=== PATIENT | male | born 1940 | race Caucasian/White ===

== ENCOUNTER 2021-04-26 12:24 | Emergency (ER) | payer MEDICARE, SELFPAY ==
--- NOTE | 2021-04-26 12:36 | DI.RAD.S_ITS ---
PROCEDURE: XR HIP W PEL IF DONE RT 2V INDICATIONS: pain in ball of hip TECHNIQUE: AP pelvis with AP and lateral view(s) of the right hip(s). COMPARISON: [facility] [place], LIBBY, BILATERAL FEMUR, 01/02/2016, 11:19. FINDINGS: Bones: No fractures or dislocations. Pelvic ring appears intact. No suspicious bony lesions. Unremarkable right hip arthroplasty hardware is seen. No definite findings hardware failure or hardware loosening can be seen. No significant changes compared to 2016. Lower lumbar spine postoperative hardware is partially seen. A bone harvesting site can be seen along the left iliac wing. Soft tissues: The visualized bowel gas pattern is normal. No suspicious soft tissue calcifications. Groin clips are seen, including vasectomy clips. IMPRESSION: Unremarkable right hip arthroplasty hardware. Dictated by: Alec Amezcua M.D. on 04/26/2021 at 12:22 Approved by: Alec Amezcua M.D. on 04/26/2021 at 12:24
[2021-04-26 12:37] VITALS: BP 162/76; PULSE 56; RESP 18; TEMP 36.8; O2SAT 95
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
[2021-04-26] MEDS: OXYCODONE IR 5 MG TABLET PO (13:56)
--- NOTE | 2021-04-26 14:13 | PC.NURSE ---
on arrival pt using the bed and chair to move about or take a couple of steps.
[2021-04-26 14:36] VITALS: BP 158/70; PULSE 74; RESP 16; O2SAT 97
== END 2021-04-26 13:42 | disposition home or self-care (01) ==
PROVIDERS: Emergency Provider Physician Assistant; Family Provider Family Medicine; PCP Family Medicine
DX: M25.551 Pain in right hip (principal)
CPT/HCPCS: 73502; 99283

== ENCOUNTER 2023-05-24 07:59 | Emergency (ER) | payer MEDICARE, SELFPAY ==
[2023-05-24] VITALS (48 sets, daily range): BP systolic 98–149; BP diastolic 51–67; PULSE 50–82; RESP 15–33; TEMP 36.9; O2SAT 93–97; BMI 31.6
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
--- NOTE | 2023-05-24 08:07 | DI.RAD.S_ITS ---
PROCEDURE: XR CHEST 1V INDICATIONS: CP TECHNIQUE: One view of the chest was acquired. COMPARISON: None. FINDINGS: Surgical changes and devices: Sternotomy wires are present. Lungs and pleura: Mildly low lung volumes. No focal consolidation is seen. No pleural effusions or pneumothorax. Mediastinum: Mediastinal contours appear normal. Heart size is normal. Bones and chest wall: No suspicious bony lesions. Overlying soft tissues appear unremarkable. IMPRESSION: No acute cardiopulmonary abnormality is seen. Approved by: Donis Grover M.D. on 05/24/2023 at 8:39
[2023-05-24 08:31] LABS: Add Manual Diff / Slide Review NO; Basophils Absolute Auto 100 /uL (0-100); Basophils Percent Auto 0.6 % (0-2); Eosinophils Absolute Auto 100 /uL (0-450); Hematocrit 39.1 % (41-53); Hemoglobin 13.1 g/dL (13.5-17.5); Lymphocytes Absolute Auto 1200 /uL (1100-4500); Lymphocytes Percent Auto 13.9 % (25-40); Mean Corpuscular HGB Conc 33.6 % (30-36); Mean Corpuscular Hemoglobin 30.7 PG (26-34); Mean Corpuscular Volume 91.5 fL (80-100); Monocytes Absolute Auto 400 /uL (0-900); Monocytes Percent Auto 4.1 % (3-14); Neutrophils Absolute Auto 7200 /uL (1500-7000); Neutrophils Percent Auto 80.4 % (50-75); Platelet Count 175 X10^3/uL (150-400); Red Blood Cell Count 4.27 X10^6/uL (4.5-5.9); Red Cell Distribution Width 15.1 % (11.6-14.8); White Blood Cell Count 8.9 X10^3/uL (4.5-11.0)
[2023-05-24 08:46] LABS: Alanine Aminotransferase 23 IU/L (<50); Albumin 3.8 g/dL (3.5-5.0); Albumin Globulin Ratio 1.1 (1.0-2.8); Alkaline Phosphatase 65 U/L (38-126); Aspartate Aminotransferase 30 IU/L (17-59); BUN Creatinine Ratio 15.1 (6-22); Bilirubin Total 0.6 mg/dL (0.2-1.3); Blood Urea Nitrogen 22 mg/dL (9-20); Calcium 9.3 mg/dL (8.4-10.2); Carbon Dioxide 24 mmol/L (22-32); Chloride 109 mmol/L (98-107); Estimated Glomerular Filt Rate 47 mL/min (>60); Globulin 3.5 g/dL (1.7-4.1); Glucose 110 mg/dL (80-110); HEMOLYSIS < 15 (0-50); Potassium 4.5 mmol/L (3.4-5.1); Sodium 137 mmol/L (137-145); Total Protein 7.3 g/dL (6.3-8.2)
[2023-05-24 08:57] LABS: Troponin I < 0.012 ng/mL (0.01-0.034)
[2023-05-24] MEDS: NITROGLYCERIN OINT 1 INCH/GM OINT...G. TOP (08:57)
[2023-05-24 09:07] LABS: Influenza A - CEPHEID Flu A NEGATIVE (NEGATIVE); Influenza B - CEPHEID Flu B NEGATIVE (NEGATIVE); Respiratory Syncytial Virus Negative (Negative)
[2023-05-24 09:10] LABS: COVID-19 CEPHEID 4-PLEX PCR Negative (Negative)
--- NOTE | 2023-05-24 09:11 | PC.NURSE ---
At 0900 when RN was placing nitro paste on pt, pt stated his chest pain was increasing. Pt's HR dropped of the 30s and pt began to vomit. Dr. Pat called to bedside. Defib pads placed on pt. Pt states after vomitting, chest pain subsided. HR back up to 50s-60s all over vitals WNL. Continuing to monitor pt for any changes.
[2023-05-24] MEDS: SODIUM CHLORIDE 0.9% 1,000 ML 1000 ML IV (09:31)
[2023-05-24] MEDS: ONDANSETRON 4 MG/2 ML INJ IV (09:31)
--- NOTE | 2023-05-24 10:20 | PC.NURSE ---
Addendum entered by Kirsten Murry CNA 05/24/23 10:42: spoke to Teri at [facility] and they are currently boarding spoke to paul at [facility] and they don't have beds spoke to alicia at [facility] and they are currently boarding Original Note: Dr. Clayton accepts pt at [facility] called dry house attendant Tayla and she said there is pt's ahead of him and they probably will not have a bed until later on today possibly tomorrow. Called [facility] spoke to nick who stated they currently don't have a bed but they are working on discharges. spoke to Tahmina at [facility] who told me there's no bed but to put in the order I instructed her I've never put in an order for a transfer before and she told me to do it online I told her that's not how I normally do it I usually call and the nurse takes information she then transfered me to Jaz who took pt information and told me it might be 24 to 48 hours after giving Jaz diagnosis Jaz stated this might need to be seen sooner than 24 hours stated to keep calling other places. Spoke to Paulina at [facility] she will start working on the case and have licensed acupuncturist give us a call back
[2023-05-24 11:21] LABS: Troponin I < 0.012 ng/mL (0.01-0.034)
[2023-05-24 12:51] LABS: Magnesium 1.9 mg/dL (1.6-2.3)
[2023-05-24 13:23] LABS: Thyroid Stimulating Hormone 3.47 uIU/mL (0.47-4.68)
[2023-05-24] MEDS: CALCIUM CARBONATE 500 MG TAB PO (15:36)
== END 2023-05-24 16:00 | disposition short-term general hospital (02) ==
PROVIDERS: Emergency Provider Emergency Medicine; Family Provider Family Medicine; PCP Family Medicine
DX: R07.9 Chest pain, unspecified (principal); Z20.822 Contact with and (suspected) exposure to COVID-19
CPT/HCPCS: 0241U; 36415; 71045; 80053; 83735; 84443; 84484; 85025; 93005; 93010; 96361; 96374; 99284; J2405

== ENCOUNTER 2023-11-09 13:58 | Emergency (ER) | payer MEDICARE, SELFPAY ==
[2023-11-09 14:02] VITALS: BP 134/68; PULSE 58; RESP 19; TEMP 36.8; O2SAT 95; BMI 30.7
--- NOTE | 2023-11-09 14:11 | DI.RAD.S_ITS ---
PROCEDURE: XR SHOULDER LT MIN 2V INDICATIONS: fall tuesday morning and pain TECHNIQUE: 3 views of the shoulder were acquired. COMPARISON: None. FINDINGS: Bones: No fractures or dislocations. No suspicious bony lesions. Visualized ribs appear intact. Acromioclavicular joint space narrowing with osteophytosis. Soft tissues: No suspicious soft tissue calcifications. IMPRESSION: No acute bony abnormality. Dictated by: John Hermosillo M.D. on 11/09/2023 at 14:46 Approved by: John Hermosillo M.D. on 11/09/2023 at 14:47
--- NOTE | 2023-11-09 14:12 | DI.RAD.S_ITS ---
PROCEDURE: XR HUMERUS LT 2V INDICATIONS: fall tuesday morning/pain TECHNIQUE: 2 views of the humerus were acquired. COMPARISON: None. FINDINGS: Bones: No fractures or dislocations. No suspicious bony lesions. Soft tissues: No suspicious soft tissue calcifications. IMPRESSION: No acute bony abnormality. Dictated by: John Hermosillo M.D. on 11/09/2023 at 14:46 Approved by: John Hermosillo M.D. on 11/09/2023 at 14:46
[2023-11-09 14:31] VITALS: PULSE 62
--- NOTE | 2023-11-09 14:36 | ED_ITS ---
HPI - Extremity Injury (Upper) General Chief Complaint: Extremity Injury, Upper Stated Complaint: fall t-2, L arm pain poss fracture Time Seen by Provider: 11/09/23 14:24 Source: patient Mode of arrival: Wheelchair History of Present Illness HPI narrative: Patient here with his . Patient is right-handed. Patient and states 2 nights ago he got up to go the bathroom around midnight. Was not using his cane as he is supposed to. He did not turn on the lights. It was dark. He went also to put cream on his back, on his way back, the doorway to the bedroom he tripped and fell onto his left shoulder. Denies denies any other injuries. Did not hit his head. No loss of consciousness. heard him fall and got up to be next to him. Patient is not on any blood thinners. Patient complains of proximal 3rd of the humerus pain. No wrist or elbow pain or injury. Has limited range of motion and limited raising his hand above his shoulder due to pain. Patient had allergies to tramadol but has been on tramadol for the past 3 weeks without any rash. Patient states he would only get a rash with oxycodone but that was many many years ago. They would like to try something stronger and would like to try hydrocodone. They do understand this may also cause a rash. Related Data Home Medications Medication Instructions Recorded Confirmed aspirin 81 mg tablet,delayed 81 mg PO HS ##0 04/14/16 release metoprolol tartrate 50 mg tablet 50 mg PO BID ##0 04/14/16 naproxen sodium 220 mg capsule 220 mg PO QDAY ##0 04/14/16 (Aleve) rosuvastatin 20 mg tablet (Crestor) 20 mg PO QDAY ##0 04/14/16 tamsulosin 0.4 mg capsule (Flomax) 0.4 mg PO HS ##0 04/14/16 Previous Rx's Medication Instructions Recorded oxycodone 5 mg tablet 5 mg PO DAILY #15 tabs 04/26/21 hydrocodone 5 mg-acetaminophen 325 1 tab PO Q6H PRN pain #20 tabs 11/09/23 mg tablet ondansetron 4 mg disintegrating 4 mg PO Q8H PRN nausea and 11/09/23 tablet vomiting #10 tabs Allergies Allergy/AdvReac Type Severity Reaction Status Date / Time GWEN Inhibitors Allergy Intermediate Verified 11/09/23 14:41 [GWEN INHIBITORS] Iodine and Iodide Containing Allergy Intermediate ITCHING/REDNESS Verified 11/09/23 14:41 Produc OVER [IODINE AND IODIDE ENTIRE CONTAINING PRODUC] BODY, NO SOB/TONGUE SWELLING/WHE lisinopril [LISINOPRIL] Allergy Intermediate ITCH/RED Verified 11/09/23 14:41 OVER ENTIRE BODY, NO TONGUE SWELLING, SOB, WHEEZE oxycodone Allergy Rash Verified 11/09/23 14:42 Review of Systems Review of Systems Narrative: GENERAL: negative chills, fatigue, malaise, fever, sweats. HEENT: negative sinus pain, ear pain, sore throat RESPIRATORY: negative dyspnea, cough CARDIOVASCULAR: negative chest pain, palpitations GASTROINTESTINAL: negative nausea, vomiting, abdominal pain : negative dysuria, frequency, hematuria MUSCULOSKELETAL: Positive muscle or bony pain SKIN: negative rash, skin lesions NEUROLOGIC: negative weakness, numbness ROS Unobtainable: All systems reviewed & are unremarkable except as noted in HPI and below Patient History Social History Smoking Status: Never smoker Smoking Status: Never smoker Substance Use Type: does not use Exam Narrative Exam Narrative: GENERAL: in no distress, not toxic not dyspneic HEAD: Normocephalic. EYES: Pupils equal round EXTREMITIES: No gross deformities. Shirt removed. Left shoulder 2 fingers exposed. Nontender finger hand wrist and elbow. There is pain at the proximal humerus with flexion-extension supination and pronation of the forearm. No gross deformity or drop off of the left shoulder. Light touch intact to deltoid fingers and thumb. Strong wooden tank erector and radial pulse. No bruising or edema seen at the shoulder or proximal humerus. Has very limited range of motion of the shoulder due to pain. Pain with attempts to abduct adduct forward flexion external rotation and trying to bring hand to his shoulder level or behind his back. NEURO: AOx4. SKIN: Warm and dry PSYCH: Not anxious, is cooperative Initial Vital Signs Initial Vital Signs: Vital Signs Temperature 98.3 F 11/09/23 14:02 Pulse Rate 58 L 11/09/23 14:02 Respiratory Rate 19 11/09/23 14:02 Blood Pressure 134/68 11/09/23 14:02 Pulse Oximetry 95 11/09/23 14:02 Oxygen Delivery Method Room Air 11/09/23 14:02 Course Orders Ordered: ED Orders 11/09/23 14:11 XR shoulder LT min 2V Stat 11/09/23 14:12 XR humerus LT 2V Stat Discontinued Medications Hydrocodone Bitart/Acetaminophen (Hydrocodone/Acet 5/325 Tablet) 1 tab PO NOW ONE Stop: 11/09/23 14:36 Last Admin: 11/09/23 14:43 Dose: 1 tab Ondansetron HCl (Ondansetron 4 Mg Odt) 4 mg SL NOW ONE Stop: 11/09/23 14:36 Last Admin: 11/09/23 14:42 Dose: 4 mg Vital Signs Vital signs: Vital Signs - 8 hr 11/09/23 14:02 11/09/23 14:31 Temperature 98.3 F Pulse Rate 58 L Pulse Rate [Left Radial] 62 Respiratory Rate 19 Blood Pressure 134/68 Pulse Oximetry 95 Oxygen Delivery Method Room Air MDM - Extremity Injury (Upper) Imaging Data Extremity x-ray #1: Radiologist's Impression: [address] [address] XRay Report Signed Patient: Billy Rivera MR#: [id number] : 1940 Acct:[id number] Age/Sex: 83 / M Date of Service: 11/09/23 Loc: ED Accession Number: [id number] Procedure: XR humerus LT 2V Ordering Provider: Goyo Herzog D.O. PROCEDURE: XR HUMERUS LT 2V INDICATIONS: fall tuesday morning/pain TECHNIQUE: 2 views of the humerus were acquired. COMPARISON: None. FINDINGS: Bones: No fractures or dislocations. No suspicious bony lesions. Soft tissues: No suspicious soft tissue calcifications. IMPRESSION: No acute bony abnormality. Dictated by: John Hermosillo M.D. on 11/09/2023 at 14:46 Approved by: John Hermosillo M.D. on 11/09/2023 at 14:46 Extremity x-ray #2: Radiologist's Impression: [address] [address] XRay Report Signed Patient: Billy Rivera MR#: [id number] : 1940 Acct:[id number] Age/Sex: 83 / M Date of Service: 11/09/23 Loc: ED Accession Number: [id number] Procedure: XR shoulder LT min 2V Ordering Provider: Goyo Herzog D.O. PROCEDURE: XR SHOULDER LT MIN 2V INDICATIONS: fall tuesday and pain TECHNIQUE: 3 views of the shoulder were acquired. COMPARISON: None. FINDINGS: Bones: No fractures or dislocations. No suspicious bony lesions. Visualized ribs appear intact. Acromioclavicular joint space narrowing with osteophytosis. Soft tissues: No suspicious soft tissue calcifications. IMPRESSION: No acute bony abnormality. Dictated by: John Hermosillo M.D. on 11/09/2023 at 14:46 Approved by: John Hermosillo M.D. on 11/09/2023 at 14:47 [facility] Narrative Medical decision making narrative: Patient here with his . Patient is right-handed. Patient and states 2 nights ago he got up to go the bathroom around midnight. Was not using his cane as he is supposed to. He did not turn on the lights. It was dark. He went also to put cream on his back, on his way back, the doorway to the bedroom he tripped and fell onto his left shoulder. Denies denies any other injuries. Did not hit his head. No loss of consciousness. heard him fall and got up to be next to him. Patient is not on any blood thinners. Patient complains of proximal 3rd of the humerus pain. No wrist or elbow pain or injury. Has limited range of motion and limited raising his hand above his shoulder due to pain. Patient had allergies to tramadol but has been on tramadol for the past 3 weeks without any rash. Patient states he would only get a rash with oxycodone but that was many many years ago. They would like to try something stronger and would like to try hydrocodone. They do understand this may also cause a rash. After history and exam x-ray left humerus left shoulder hydrocodone Zofran/sling [facility] Medical records reviewed: No recent visit for this complaint Differential considered: Includes but not limited to humeral fracture dislocation contusion, shoulder strain sprain, rotator cuff injury Imaging studies independently reviewed: X-ray left shoulder left humerus no acute finding Consultations: Orthopedic referral provided Treatments: Hydrocodone Zofran sling Re-evaluations: 3:12 p.m. Reviewed results and exam with patient and . is driving. Pain is controlled. Sling provided. At this time exam and imaging otherwise reassuring. Return 7-10 days if not improving for repeat imaging. They agree with this plan. They desire discharge home Discussion: Appropriate for discharge home. Exam and imaging otherwise reassuring. Patient at this time does not have allergic reaction to hydrocodone . Prescription will be provided. Return precautions reviewed with him. Orthopedic referral provided. Sling provided. They desire discharge home Diagnosis: Left shoulder contusion Discharge Plan Departure Patient Disposition: Home Clinical Impression: Contusion of left shoulder or upper extremity Instructions: DI for Shoulder Pain Activity Restrictions/Additional Instructions: Please use shoulder sling until office appointment. Call provided orthopedic office today or tomorrow for appointment time within a week. Your exam and x- ray imaging are reassuring at this time however if not improving 7-10 days may need repeat imaging such as CT scan or MRI or repeat x-ray. If you have any allergic reaction to the hydrocodone return immediately and stop taking it. No driving operating machinery today or when taking prescribed pain medication. Return if worse if any questions or concerns. Prescriptions: New hydrocodone-acetaminophen 5-325 mg tablet 1 tab PO Q6H PRN (Reason: pain) Qty: 20 0RF ondansetron 4 mg tablet,disintegrating 4 mg PO Q8H PRN (Reason: nausea and vomiting) Qty: 10 0RF No Action aspirin 81 MG tablet,delayed release (DR/EC) 81 mg PO HS Qty: 0 rosuvastatin [Crestor] 20 MG tablet 20 mg PO QDAY Qty: 0 naproxen sodium [Aleve] 220 MG capsule 220 mg PO QDAY Qty: 0 tamsulosin [Flomax] 0.4 MG capsule,extended release 24hr 0.4 mg PO HS Qty: 0 metoprolol tartrate 50 MG tablet 50 mg PO BID Qty: 0 oxycodone 5 mg tablet 5 mg PO DAILY Qty: 15 0RF Referrals: Cornelio Anderson MD [Primary Care Provider] - Kofi Sue MD [Physician] - Stand Alone Forms: Patient Portal/API
[2023-11-09] MEDS: ONDANSETRON 4 MG ODT SL (14:42)
[2023-11-09] MEDS: HYDROCODONE/ACET 5/325 TABLET 1 TAB PO (14:43)
[2023-11-09 15:18] VITALS: BP 113/74; PULSE 54; O2SAT 100
== END 2023-11-09 15:18 | disposition home or self-care (01) ==
PROVIDERS: Emergency Provider Emergency Medicine; Family Provider Family Medicine; PCP Family Medicine
DX: S40.012A Contusion of left shoulder, initial encounter (principal); W01.0XXA Fall on same level from slipping, tripping and stumbling without subsequent striking against object, initial encounter
CPT/HCPCS: 73030; 73060; 99283

== ENCOUNTER 2023-11-13 09:27 | Emergency (ER) | payer MEDICARE, SELFPAY ==
[2023-11-13] VITALS (13 sets, daily range): BP systolic 128–171; BP diastolic 65–83; PULSE 98–134; RESP 15–20; O2SAT 89–98; BMI 30.7
--- NOTE | 2023-11-13 10:05 | DI.RAD.S_ITS ---
PROCEDURE: XR ABDOMEN 1V INDICATIONS: possible bowel obstruction TECHNIQUE: One view of the abdomen acquired. COMPARISON: [facility] [place], CR, XR LUMBAR SPINE 2 OR 3 VIEWS, 05/15/2021, 13:37. FINDINGS: Surgical changes and devices: Sternotomy wires are seen. Lumbar Zuñiga rods are seen. Regional most operative clips are seen. Right hip arthroplasty hardware is seen. Bone harvesting can be seen involving the left lateral iliac wing. Bowel: Bowel gas pattern is normal. Soft tissues: No suspicious abdominal calcifications. Visualized solid organ contours appear normal in size. Bones: No suspicious bony lesions. Age-appropriate bony degenerative changes are seen. IMPRESSION: A nonobstructive bowel gas pattern is seen. If clinically appropriate, please consider a repeat plain film study or a dedicated CT of the abdomen and pelvis, if the patient's symptoms persist or worsen. Postoperative and degenerative changes are seen. Dictated by: Alec Amezcua M.D. on 11/13/2023 at 9:49 Approved by: Alec Amezcua M.D. on 11/13/2023 at 9:50
[2023-11-13 10:26] LABS: Add Manual Diff / Slide Review NO; Basophils Absolute Auto 0 /uL (0-100); Basophils Percent Auto 0.4 % (0-2); Eosinophils Absolute Auto 0 /uL (0-450); Eosinophils Percent Auto 0.2 % (2-4); Hematocrit 39.4 % (41-53); Lymphocytes Absolute Auto 1800 /uL (1100-4500); Lymphocytes Percent Auto 14.9 % (25-40); Mean Corpuscular HGB Conc 33.1 % (30-36); Mean Corpuscular Hemoglobin 30.1 PG (26-34); Mean Corpuscular Volume 90.9 fL (80-100); Monocytes Absolute Auto 700 /uL (0-900); Monocytes Percent Auto 5.6 % (3-14); Neutrophils Absolute Auto 9700 /uL (1500-7000); Neutrophils Percent Auto 78.9 % (50-75); Platelet Count 215 X10^3/uL (150-400); Red Blood Cell Count 4.33 X10^6/uL (4.5-5.9); Red Cell Distribution Width 14.1 % (11.6-14.8); White Blood Cell Count 12.2 X10^3/uL (4.5-11.0)
--- NOTE | 2023-11-13 10:39 | EKG_ITS ---
[place] [address] [place] [id number] Test Date: 2023-11-13 Pat Name: Billy Rivera Department: 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
[2023-11-13 10:40] LABS: Alanine Aminotransferase 21 IU/L (<50); Albumin 4.2 g/dL (3.5-5.0); Albumin Globulin Ratio 1.2 (1.0-2.8); Alkaline Phosphatase 90 U/L (38-126); Aspartate Aminotransferase 33 IU/L (17-59); BUN Creatinine Ratio 13.7 (6-22); Bilirubin Total 0.9 mg/dL (0.2-1.3); Blood Urea Nitrogen 25 mg/dL (9-20); Calcium 9.5 mg/dL (8.4-10.2); Carbon Dioxide 20 mmol/L (22-32); Chloride 102 mmol/L (98-107); Estimated Glomerular Filt Rate 36 mL/min (>60); Globulin 3.5 g/dL (1.7-4.1); Glucose 128 mg/dL (80-110); HEMOLYSIS < 15 (0-50); Lipase 54 U/L (23-300); Potassium 4.3 mmol/L (3.4-5.1); Sodium 133 mmol/L (137-145); Total Protein 7.7 g/dL (6.3-8.2)
--- NOTE | 2023-11-13 10:54 | ED_ITS ---
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 He has been getting MiraLax daily. Comes in complaining of abdominal pain Related Data Home Medications Medication Instructions Recorded Confirmed aspirin 81 mg tablet,delayed 81 mg PO HS ##0 04/14/16 release metoprolol tartrate 50 mg tablet 50 mg PO BID ##0 04/14/16 naproxen sodium 220 mg capsule 220 mg PO QDAY ##0 04/14/16 (Aleve) rosuvastatin 20 mg tablet (Crestor) 20 mg PO QDAY ##0 04/14/16 tamsulosin 0.4 mg capsule (Flomax) 0.4 mg PO HS ##0 04/14/16 Previous Rx's Medication Instructions Recorded oxycodone 5 mg tablet 5 mg PO DAILY #15 tabs 04/26/21 hydrocodone 5 mg-acetaminophen 325 1 tab PO Q6H PRN pain #20 tabs 11/09/23 mg tablet ondansetron 4 mg disintegrating 4 mg PO Q8H PRN nausea and 11/09/23 tablet vomiting #10 tabs Allergies Allergy/AdvReac Type Severity Reaction Status Date / Time GWEN Inhibitors Allergy Intermediate Verified 11/09/23 14:41 [GWEN INHIBITORS] Iodine and Iodide Containing Allergy Intermediate ITCHING/REDNESS Verified 11/09/23 14:41 Produc OVER [IODINE AND IODIDE ENTIRE CONTAINING PRODUC] BODY, NO SOB/TONGUE SWELLING/WHE lisinopril [LISINOPRIL] Allergy Intermediate ITCH/RED Verified 11/09/23 14:41 OVER ENTIRE BODY, NO TONGUE SWELLING, SOB, WHEEZE oxycodone Allergy Rash Verified 11/09/23 14:42 Review of Systems Review of Systems Narrative: Pertinent positive and negative findings as per HPI Patient History Medical History (Updated 11/13/23 @ 12:57 by Dana Morel MD) Hyperlipidemia Hypertension Social History Smoking Status: Never smoker Smoking Status: Never smoker Substance Use Type: does not use Exam Initial Vital Signs Initial Vital Signs: Vital Signs Pulse Rate 107 H 11/13/23 09:46 Respiratory Rate 20 11/13/23 09:46 Blood Pressure 138/68 11/13/23 09:46 Pulse Oximetry 98 11/13/23 09:46 Oxygen Delivery Method Room Air 11/13/23 09:46 General: Healthy appearing, in no acute distress. Able to give a complete and coherent history. Well-nourished well-developed HEENT: Moist mucous membranes, normal sclera with reactive pupils, Respiratory: Lungs are clear to auscultation, no wheezing no rales no rhonchi. Full and symmetrical air movement Cardiac: Regular rate and rhythm no murmurs no bruits Abdomen: Soft, nontender, Rectal exam has soft stool in the vault, mild manual disimpaction undertaken at the bedside Skin: Warm and dry, no rashes Neurologic: Grossly neurologically intact with no obvious asymmetries or abnormalities Extremities: Some bruising along the posterior left shoulder humerus consistent with his recent fall Psych: Cooperative, appropriate insight and affect Course Orders Ordered: ED Orders 11/13/23 09:51 EKG-12 Lead Stat 11/13/23 10:05 XR abdomen 1V Stat 11/13/23 10:20 Complete Blood Count AUTO DIFF Stat Comprehensive Metabolic Panel Stat Lipase Stat 11/13/23 11:55 Urine Microscopic Stat Hydromorphone HCl (Hydromorphone 0.5 Mg Inj) 0.5 mg IV Q15MIN PRN PRN Reason: Pain, Ondansetron HCl (Ondansetron 4 Mg/2 Ml Inj) 4 mg IV NOW PRN PRN Reason: Nausea And Vomiting Last Admin: 11/13/23 11:59 Dose: 4 mg Documented By: NAV Ondansetron HCl (Ondansetron 4 Mg Odt) 4 mg PO NOW PRN PRN Reason: Nausea And Vomiting Discontinued Medications Sodium Chloride (Normal Saline 0.9%) 1,000 mls @ 1,000 mls/hr IV BOLUS ONE Stop: 11/13/23 12:20 Last Infusion: 11/13/23 13:14 Dose: Infused Documented By: Admin: 11/13/23 11:58 Dose: 1,000 mls/hr Documented By: CTS Vital Signs Vital signs: Vital Signs - 8 hr 11/13/23 09:46 11/13/23 10:22 11/13/23 10:30 Pulse Rate 107 H Respiratory Rate 20 Blood Pressure 138/68 128/83 128/76 Pulse Oximetry 98 Oxygen Delivery Method Room Air 11/13/23 10:56 11/13/23 11:01 11/13/23 11:20 Pulse Rate 134 H 102 H Respiratory Rate Blood Pressure 132/77 Pulse Oximetry 96 95 Oxygen Delivery Method 11/13/23 11:30 11/13/23 11:38 11/13/23 11:56 Pulse Rate 110 H Respiratory Rate Blood Pressure 145/71 H 162/82 H Pulse Oximetry 98 Oxygen Delivery Method 11/13/23 11:56 11/13/23 12:00 11/13/23 12:00 Pulse Rate 103 H 98 H Respiratory Rate 16 Blood Pressure 171/83 H Pulse Oximetry 97 98 Oxygen Delivery Method 11/13/23 12:30 11/13/23 12:30 11/13/23 13:00 Pulse Rate 106 H Respiratory Rate Blood Pressure 132/70 137/65 Pulse Oximetry 89 L Oxygen Delivery Method Medical Decision Making Lab Data 11/13/23 10:20 11/13/23 10:20 Labs: Lab Results 11/13/23 11/13/23 Range/Units 10:20 11:55 WBC 12.2 H (4.5-11.0) X10^3/uL RBC 4.33 L (4.5-5.9) X10^6/uL Hgb 13.0 L (13.5-17.5) g/dL Hct 39.4 L (41-53) % MCV 90.9 (80-100) fL MCH 30.1 (26-34) PG MCHC 33.1 (30-36) % RDW 14.1 (11.6-14.8) % Plt Count 215 (150-400) X10^3/uL Neut % (Auto) 78.9 H (50-75) % Lymph % (Auto) 14.9 L (25-40) % [place] % (Auto) 5.6 (3-14) % Eos % (Auto) 0.2 L (2-4) % Baso % (Auto) 0.4 (0-2) % Neut # (Auto) 9700 H (6655-2984) /uL Lymph # (Auto) 1800 (4531-4800) /uL [place] # (Auto) 700 (0-900) /uL Eos # (Auto) 0 (0-450) /uL Baso # (Auto) 0 (0-100) /uL Sodium 133 L (137-145) mmol/L Potassium 4.3 (3.4-5.1) mmol/L Chloride 102 (98-107) mmol/L Carbon Dioxide 20 L (22-32) mmol/L BUN 25 H (9-20) mg/dL Creatinine 1.83 H (0.66-1.25) mg/dL Estimated GFR 36 L (>60) mL/min BUN/Creatinine Ratio 13.7 (6-22) Glucose 128 H (80-110) mg/dL Calcium 9.5 (8.4-10.2) mg/dL Total Bilirubin 0.9 (0.2-1.3) mg/dL AST 33 (17-59) IU/L ALT 21 (<50) IU/L Alkaline Phosphatase 90 (38-126) U/L Total Protein 7.7 (6.3-8.2) g/dL Albumin 4.2 (3.5-5.0) g/dL Globulin 3.5 (1.7-4.1) g/dL Albumin/Globulin Ratio 1.2 (1.0-2.8) Lipase 54 (23-300) U/L Urine RBC 1-5/hpf (0-5/HPF) Urine WBC None seen (0-5/HPF) Ur Squamous Epith Cells None seen (0-5/HPF) Urine Bacteria None seen (None) Ur Culture Indicated? Cult not indicated Vol Urine Centrifuged 10ml (spun) Urine Dip Bedside Urine Glucose Negative Bedside Urine Bilirubin - Negative Bedside Urine Ketone +/- 5 Urine Specific [place] 1.010 Bedside Urine Occult Blood + Bedside Urine pH 6.0 Bedside Urine Protein - Negative Bedside Urine Urobilinogen - Negative Bedside Urine Nitrite - Negative Bedside Urine Leukocytes - Negative Esterase Point of care testing: Urine Dip Bedside Urine Glucose Negative Bedside Urine Bilirubin - Negative Bedside Urine Ketone +/- 5 Urine Specific [place] 1.010 Bedside Urine Occult Blood + Bedside Urine pH 6.0 Bedside Urine Protein - Negative Bedside Urine Urobilinogen - Negative Bedside Urine Nitrite - Negative Bedside Urine Leukocytes - Negative Esterase MDM Narrative Medical decision making narrative: CC: Abdominal pain Complicating co-morbidities: Recent fall with left shoulder injury, given oxycodone was taking stool softener decreased stooling and voiding since then, coronary artery disease, BPH Data collected from: patient, Medical records reviewed: Emergency room visit from November 08 reviewed Differential considered: Constipation secondary to hydrocodone as well as pain, bowel obstruction, infection, renal failure secondary to bladder outlet obstruction Exam documented above, pertinent findings include: Some minor tenderness of the left shoulder from his prior fall, abdomen is slightly distended but certainly not a surgical abdomen. He has soft stool in the rectal vault with minimal movement when he tries to push with Valsalva maneuver. Lab Test results independently reviewed as above. Pertinent findings: CBC shows slight leukocytosis at 12.2 minimal left shift. Chronic anemia Chemistries are notable for creatinine increasing from his baseline 1.3-1.5 range up to 1.8. Bladder scan shows 700 cc in the bladder, Lacey catheter is placed Independently reviewed EKG: Sinus rhythm with first-degree block. No acute ischemic changes Imaging studies independently reviewed: X-ray of the abdomen does not suggest bowel obstruction, there is a moderate amount of stool through the left colon Treatments: The manual disimpaction, Lacey catheter placement, enema, hydromorphone IV for severe abdominal pain Re-evaluations: Patient had a very large bowel movement after enema Discussion: 83-year-old gentleman with abdominal pain secondary to constipation constipation secondary to hydrocodone, decreased activity and poor diet. Associated acute urinary retention likely also secondary to narcotic use. Lacey catheter is in. He has given an enema in the emergency department. We talked about improved diet, MiraLax use daily to help with daily bowel movements. Once he is off the narcotics he can go back to his tramadol will likely need to continue with MiraLax. On the tramadol he has been doing better with urinary retention. Recommended to follow up with his primary care physician about a week after stopping the narcotics to for a trial of removal of his Lacey catheter. He is safe for discharge at this time Discharge Plan Departure Patient Disposition: Home Clinical Impression: Acute on chronic urinary retention Constipation Qualifiers: Constipation type: drug induced constipation Qualified Code(s): K59.03 - Drug induced constipation Instructions: DI for Constipation, DI for Urinary Retention in Men Activity Restrictions/Additional Instructions: Thank you for coming in today. The narcotics that you are taking for your postoperative shoulder pain or causing your significant constipation. Your stool is relatively soft and you were given an enema. It is important that you continue with MiraLax. The appropriate dose of MiraLax is however much it takes to have a daily bowel movement. This medication is not absorbed, simply pulls water into your colon and can be continued daily. Once your postoperative pain is down enough that you can return to using your tramadol rather than your hydrocodone, it will still be appropriate to continue with MiraLax to avoid constipation. Hydrocodone can cause acute urinary retention as well. With your enlarged bladder you still need to continue with your Flomax. A Lacey catheter was placed and there was almost 800 cc of urine that returned. I think getting your bladder completely drained will also help with your constipation issue You will need follow up with the primary care physician about a week after stopping your hydrocodone to discuss removing the Lacey catheter. If you find that you are getting worse or developing new symptoms she will need to return to the emergency department Prescriptions: No Action aspirin 81 MG tablet,delayed release (DR/EC) 81 mg PO HS Qty: 0 rosuvastatin [Crestor] 20 MG tablet 20 mg PO QDAY Qty: 0 naproxen sodium [Aleve] 220 MG capsule 220 mg PO QDAY Qty: 0 tamsulosin [Flomax] 0.4 MG capsule,extended release 24hr 0.4 mg PO HS Qty: 0 metoprolol tartrate 50 MG tablet 50 mg PO BID Qty: 0 oxycodone 5 mg tablet 5 mg PO DAILY Qty: 15 0RF hydrocodone-acetaminophen 5-325 mg tablet 1 tab PO Q6H PRN (Reason: pain) Qty: 20 0RF ondansetron 4 mg tablet,disintegrating 4 mg PO Q8H PRN (Reason: nausea and vomiting) Qty: 10 0RF Referrals: Cornelio Anderson MD [Primary Care Provider] - Stand Alone Forms: Patient Portal/API
[2023-11-13] MEDS: SODIUM CHLORIDE 0.9% 1,000 ML 1000 ML IV (11:58)
[2023-11-13] MEDS: ONDANSETRON 4 MG/2 ML INJ IV (11:59)
[2023-11-13 12:53] LABS: Bacteria Urine None Seen; RBC Urine 1-5/HPF (0-5/HPF); Squamous Epithelial Cell Urine None Seen (0-5/HPF); Urine Volume 10mL (spun); WBC Urine None Seen (0-5/HPF)
[2023-11-13 12:54] LABS: Culture Indicated Urine Cult Not Indicated
--- NOTE | 2023-11-13 14:26 | PC.NURSE ---
pt had a very large formed stool. reports he feels so much better.
--- NOTE | 2023-11-13 14:26 | PC.NURSE ---
teaching on betnley cath care. how to use the leg bag and empty. demonstrated an understanding
== END 2023-11-13 14:56 | disposition home or self-care (01) ==
PROVIDERS: Emergency Provider Emergency Medicine; Family Provider Family Medicine; PCP Family Medicine
DX: R33.8 Other retention of urine (principal); K59.03 Drug induced constipation; I44.0 Atrioventricular block, first degree; R10.9 Unspecified abdominal pain; W18.30XA Fall on same level, unspecified, initial encounter
CPT/HCPCS: 36415; 51798; 74018; 80053; 81003; 81015; 83690; 85025; 93005; 96361; 96374; 99284; 99285; J2405

== ENCOUNTER → 2023-12-06 | Outpatient (CLI) | payer MEDICARE, SELFPAY ==
--- NOTE | 2023-12-06 | DI.MRI.S_ITS ---
PROCEDURE: MR SHOULDER LT WO CON INDICATIONS: Pain in left shoulder joint TECHNIQUE: Noncontrast oblique coronal T2 fast spin echo with fat saturation, oblique sagittal T1 spin echo and T2 fast spin echo with fat saturation, axial T1 spin echo and T2 fast spin echo with fat saturation through the shoulder. COMPARISON: [facility], CR, XR SHOULDER LT MIN 2V, 11/09/2023, 14:12. FINDINGS: Image quality: Excellent. Rotator cuff: There is full-thickness, full width tear of the supraspinatus and infraspinatus at the footprint, with tendon retraction to the level of the glenohumeral articulation. The teres minor is unremarkable. Low grade, articular sided tear of the subscapularis. Diffuse muscle edema of the supraspinatus, and the infraspinatus. Mild muscle edema of the superior fiber of the subscapularis. No fatty atrophy. Bones and bursae: Moderate degenerative changes of the acromioclavicular joint with inferior projecting osteophyte. Type 2 acromion. No os acromiale. Moderate subacromial/subdeltoid bursitis. Moderate subchondral cystic changes at the greater tuberosity, reactive. No acute fracture. Superior subluxation of the humeral head. No focal chondral defect of the glenohumeral joint. Capsule and soft tissues: Superior labral tear, extending anteriorly to the anterior labrum. The extra-articular biceps tendon is not visualized within the bicipital groove, likely secondary to full-thickness tear. The intra-articular biceps tendon is not definitely visualized either. Moderate glenohumeral effusion. Mild subcoracoid bursitis. IMPRESSION: 1. Full-thickness, full width tear of the supraspinatus and infraspinatus with tendon retraction, acute. 2. Low-grade tear of the subscapularis. 3. Full-thickness tear of the proximal biceps tendon. 4. Moderate degenerative changes of the acromioclavicular joint. Dictated by: Nighat Martinez M.D. on 12/06/2023 at 11:04 Approved by: Nighat Martinez M.D. on 12/06/2023 at 11:11
== END ==
LOC: MRI 09:12
PROVIDERS: Family Provider Family Medicine; PCP Family Medicine; Referring Provider Physician Assistant; Visit Provider Physician Assistant
DX: M75.122 Complete rotator cuff tear or rupture of left shoulder, not specified as traumatic (principal); S46.212A Strain of muscle, fascia and tendon of other parts of biceps, left arm, initial encounter; M25.512 Pain in left shoulder
CPT/HCPCS: 73221

== ENCOUNTER 2024-07-06 06:48 | Emergency (ER) | payer MEDICARE, SELFPAY ==
[2024-07-06] VITALS (8 sets, daily range): BP systolic 134–159; BP diastolic 63–78; PULSE 65–85; RESP 14–19; TEMP 36.7–36.9; O2SAT 95–98; BMI 31.6
--- NOTE | 2024-07-06 07:09 | ED.NAVMDI ---
HPI - Nausea/Vomiting/Diarrhea General Chief complaint: Nausea/Vomiting/Diarrhea Stated complaint: Vomiting; Nausea, no appetite, no bm Time Seen by Provider: 07/06/24 06:52 Source: patient and family Mode of arrival: Wheelchair History of Present Illness HPI Narrative: Patient here with complains of nausea decreased appetite, nausea with in the thought of food or trying to eat. Denies abdominal pain or chest pain or back pain. No urinary complaints. Patient has history of quadruple bypass in 2003. Patient has history of esophageal dilation at [facility] in the past couple of years. Patient denies any sensation like esophageal stricture. Patient in no distress at this time. Patient recently seen at local hospital for constipation. He was able to have good bowel movements and feeling better from that episode. Patient in no distress at this time. Patient is hard of hearing/diff, is able to read lips. Related Data Home Medications Medication Instructions Recorded Confirmed aspirin 81 mg tablet,delayed 81 mg PO HS ##0 04/14/16 release metoprolol tartrate 50 mg tablet 50 mg PO BID ##0 04/14/16 naproxen sodium 220 mg capsule 220 mg PO QDAY ##0 04/14/16 (Aleve) rosuvastatin 20 mg tablet (Crestor) 20 mg PO QDAY ##0 04/14/16 tamsulosin 0.4 mg capsule (Flomax) 0.4 mg PO HS ##0 04/14/16 Previous Rx's Medication Instructions Recorded oxycodone 5 mg tablet 5 mg PO DAILY #15 tabs 04/26/21 hydrocodone 5 mg-acetaminophen 325 1 tab PO Q6H PRN pain #20 tabs 11/09/23 mg tablet ondansetron 4 mg disintegrating 4 mg PO Q8H PRN nausea and 11/09/23 tablet vomiting #10 tabs ondansetron 4 mg disintegrating 4 mg PO Q8H PRN nausea and 07/06/24 tablet vomiting #20 tabs pantoprazole 40 mg tablet,delayed 40 mg PO DAILY #30 tabs 07/06/24 release (Protonix) Allergies Allergy/AdvReac Type Severity Reaction Status Date / Time GWEN Inhibitors Allergy Intermediate Verified 11/09/23 14:41 [GWEN INHIBITORS] Iodine and Iodide Containing Allergy Intermediate ITCHING/REDNESS Verified 11/09/23 14:41 Produc OVER [IODINE AND IODIDE ENTIRE CONTAINING PRODUC] BODY, NO SOB/TONGUE SWELLING/WHE lisinopril [LISINOPRIL] Allergy Intermediate ITCH/RED Verified 11/09/23 14:41 OVER ENTIRE BODY, NO TONGUE SWELLING, SOB, WHEEZE oxycodone Allergy Rash Verified 11/09/23 14:42 Review of Systems Review of Systems Narrative: GENERAL: Negative chills, fatigue, malaise, fever, sweats. Positive appetite change HEENT: Negative sinus pain, ear pain, sore throat RESPIRATORY: Negative dyspnea, cough CARDIOVASCULAR: Negative chest pain, palpitations GASTROINTESTINAL: Negative vomiting, positive nausea, negative abdominal pain, positive decreased appetite : Negative dysuria, frequency, hematuria MUSCULOSKELETAL: Negative muscle or bony pain SKIN: Negative rash, skin lesions NEUROLOGIC: Negative weakness, numbness ROS Unobtainable: All systems reviewed & are unremarkable except as noted in HPI and below Patient History Medical History (Updated 07/06/24 @ 09:44 by Ben Ortiz MD) Hyperlipidemia Hypertension Social History Smoking Status: Never smoker Smoking Status: Never smoker Exam Narrative Exam Narrative: GENERAL: in no distress, not toxic not dyspneic HEAD: Normocephalic. EYES: Pupils equal round ENT: Mucous membranes moist. NECK: Trachea midline. CARDIOVASCULAR: Regular rate and rhythm RESPIRATORY: Clear to auscultation. Breath sounds equal bilaterally. No wheezes, rales, or rhonchi. GASTROINTESTINAL: Abdomen soft, non-tender, no peritoneal signs, bowel sounds are present, no guarding or rebound. No pain out of proportion to exam. EXTREMITIES: No gross deformities. BACK: No flank tenderness. NEURO: AOx4. Clear speech SKIN: Warm and dry PSYCH: Not anxious, is cooperative Initial Vital Signs Initial Vital Signs: Vital Signs Temperature 98.0 F 07/06/24 06:56 Pulse Rate 75 07/06/24 06:56 Respiratory Rate 18 07/06/24 06:56 Blood Pressure 134/63 07/06/24 06:56 Pulse Oximetry 95 07/06/24 06:56 Oxygen Delivery Method Room Air 07/06/24 06:56 Course Orders Ordered: Discontinued Medications Sodium Chloride (Normal Saline 0.9%) 1,000 mls @ 1,000 mls/hr IV BOLUS ONE Stop: 07/06/24 08:08 Last Infusion: 07/06/24 08:55 Dose: Infused Documented By: Admin: 07/06/24 07:49 Dose: 1,000 mls/hr Documented By: TIFFANIE Pantoprazole Sodium (Pantoprazole 40 Mg Vial) 40 mg IV NOW ONE Stop: 07/06/24 07:10 Last Admin: 07/06/24 07:49 Dose: 40 mg Documented By: TIFFANIE Vital Signs Vital signs: Vital Signs - 8 hr 07/06/24 06:56 07/06/24 07:01 07/06/24 07:30 Temperature 98.0 F Pulse Rate 75 72 85 Respiratory Rate 18 Blood Pressure 134/63 Pulse Oximetry 95 97 96 Oxygen Delivery Method Room Air 07/06/24 07:55 07/06/24 07:55 07/06/24 08:00 Temperature Pulse Rate 74 73 Respiratory Rate 16 Blood Pressure 147/71 H Pulse Oximetry 95 97 Oxygen Delivery Method 07/06/24 08:02 07/06/24 08:02 07/06/24 08:30 Temperature Pulse Rate 71 65 Respiratory Rate 14 18 Blood Pressure 159/66 H Pulse Oximetry 97 96 Oxygen Delivery Method 07/06/24 08:30 Temperature Pulse Rate Respiratory Rate Blood Pressure 138/64 Pulse Oximetry Oxygen Delivery Method MDM - Nausea/Vomiting/Diarrhea Lab Data 07/06/24 07:28 07/06/24 08:49 Labs: Lab Results 07/06/24 07/06/24 07/06/24 Range/Units 07:28 08:23 08:49 WBC 8.9 (4.5-11.0) X10^3/uL RBC 4.10 L (4.5-5.9) X10^6/uL Hgb 12.9 L (13.5-17.5) g/dL Hct 38.4 L (41-53) % MCV 93.6 (80-100) fL MCH 31.4 (26-34) PG MCHC 33.5 (30-36) % RDW 14.3 (11.6-14.8) % Plt Count 272 (150-400) X10^3/uL Neut % (Auto) 79.3 H (50-75) % Lymph % (Auto) 15.4 L (25-40) % Gage % (Auto) 4.4 (3-14) % Eos % (Auto) 0.5 L (2-4) % Baso % (Auto) 0.4 (0-2) % Neut # (Auto) 7000 (9020-9834) /uL Lymph # (Auto) 1400 (1448-3406) /uL Gage # (Auto) 400 (0-900) /uL Eos # (Auto) 0 (0-450) /uL Baso # (Auto) 0 (0-100) /uL Sodium 137 135 L (137-145) mmol/L Potassium 5.9 H 4.7 D (3.4-5.1) mmol/L Chloride 105 105 (98-107) mmol/L Carbon Dioxide 21 L 23 (22-32) mmol/L BUN 24 H 21 H (9-20) mg/dL Creatinine 1.41 H 1.28 H (0.66-1.25) mg/dL Estimated GFR 49 L 55 L (>60) mL/min BUN/Creatinine Ratio 17.0 16.4 (6-22) Glucose 106 95 (80-110) mg/dL Calcium 9.3 8.2 L (8.4-10.2) mg/dL Total Bilirubin 0.8 (0.2-1.3) mg/dL AST 35 (17-59) IU/L ALT 35 (<50) IU/L Alkaline Phosphatase 93 (38-126) U/L Troponin I 0.032 (0.01-0.034) ng/mL Total Protein 8.7 H (6.3-8.2) g/dL Albumin 4.5 (3.5-5.0) g/dL Globulin 4.2 H (1.7-4.1) g/dL Albumin/Globulin Ratio 1.1 (1.0-2.8) Lipase 94 (23-300) U/L Urine Color Yellow Urine Appearance Clear Urine pH 7.5 (4.5-8.0) Ur Specific [place] 1.010 (1.000-1.035) Urine Protein Negative (Negative) Urine Glucose (UA) Negative (Negative) g/dL Urine Ketones Negative (NEGATIVE) Urine Occult Blood Negative (Negative) Urine Nitrate Negative (Negative) Urine Bilirubin Negative (NEGATIVE) Urine Urobilinogen 0.2 (0.2) E.U./dL Ur Leukocyte Esterase 1+ H (NEGATIVE) Urine RBC None seen (0-5/HPF) Urine WBC 5-10/hpf H (0-5/HPF) Ur Squamous Epith Cells 0-1 /hpf (0-5/HPF) Urine Bacteria Moderate (10-30) H (None) Ur Culture Indicated? Specimen cultured Vol Urine Centrifuged 10ml (spun) Imaging Data CT scan - abdomen/pelvis: Radiologist's Impression: [address] [address] [address] Scan Report Signed Patient: Billy Rivera MR#: [id number] : 1940 Acct:[id number] Age/Sex: 84 / M Date of Service: 07/06/24 Loc: ED Accession Number: [id number] Procedure: CT abdomen pelvis wo con Ordering Provider: Ben Ortiz MD PROCEDURE: CT ABDOMEN PELVIS WO CON INDICATIONS: abdominal pain TECHNIQUE: Axial sections were acquired from the lung bases to the pubic symphysis. Coronal and sagittal reformats were performed. For radiation dose reduction, the following was used: automated exposure control, adjustment of mA and/or kV according to patient size. COMPARISON: None. FINDINGS: Image quality: Diagnostic. Lower Chest: Bibasilar dependent atelectasis. Heart size is mildly enlarged, no pericardial effusion. URINARY: Right Kidney: No stones or hydronephrosis. Right Ureter: No hydroureter. Left Kidney: No stones or hydronephrosis. Left Ureter: No hydroureter. Bladder: There is mild diffuse bladder wall thickening. Alcey catheter is seen in bladder lumen. No calcified bladder stones. ABDOMEN: Liver: No contour-deforming solid mass. Calcified granuloma is seen in right hepatic lobe. Gallbladder: Cholelithiasis without gallbladder wall thickening or pericholecystic fluid. Biliary ducts: No biliary dilation. Pancreas: No ductal dilation. Spleen: Size is within normal limits. Adrenal Glands: No adrenal nodules. Stomach and Bowel: There is no bowel obstruction. No abnormal bowel wall thickening or mesenteric fat stranding. Sigmoid diverticulosis without CT evidence of acute diverticulitis. Peritoneum: No abnormal intraperitoneal fluid. No free air. Ventral Wall: No hernia. Abdominal Nodes: No enlarged retroperitoneal or mesenteric lymph nodes. Vessels: Aorta and inferior vena cava are normal in size. Tortuous abdominal aorta with moderate atherosclerotic calcifications. PELVIS: Pelvic Organs: Enlarged prostate gland with mass effect on floor of urinary bladder is seen. Pelvic Nodes: Unremarkable. Miscellaneous: No inguinal hernias are seen. Bones: No aggressive appearing bony lesions. Post fixation changes are noted in lumbar spine. There is prior right total hip arthroplasty. IMPRESSION: 1. No obstructing renal stones or hydronephrosis. Lacey catheter in partially distended urinary bladder with mild diffuse bladder wall thickening. No calcified bladder stones. No definite bladder wall mass. Enlarged prostate gland with significant mass effect on floor of urinary bladder. Finding may indicate chronic urinary outlet obstruction. 2. No bowel obstruction or abnormal bowel wall thickening. Sigmoid diverticulosis without CT evidence of acute diverticulitis. No free fluid or free air. 3. Cholelithiasis without CT evidence of acute cholecystitis. 4. Other incidental findings as described above. Dictated by: Bennie Wilson M.D. on 07/06/2024 at 8:12 Approved by: Bennie Wilson M.D. on 07/06/2024 at 8:[address] [facility] Narrative Medical decision making narrative: Patient here with complains of nausea decreased appetite, nausea with in the thought of food or trying to eat. Ongoing for 2 or 3 weeks now. Denies abdominal pain or chest pain or back pain. No urinary complaints. Patient has history of quadruple bypass in 2003. Patient has history of esophageal dilation at [facility] in the past couple of years. Patient denies any sensation like esophageal stricture. Patient in no distress at this time. Patient recently seen at local hospital for constipation. He was able to have good bowel movements and feeling better from that episode. Patient in no distress at this time. Patient is hard of hearing/diff, is able to read lips. After history and exam, CBC CMP lipase urinalysis CT abdomen pelvis normal saline Protonix EKG troponin [facility] Medical records reviewed: No recent visit here for this complaint Differential considered: Includes but not limited to STEMI non-STEMI GERD gastritis bowel obstruction pancreatitis cholecystitis cholelithiasis Lab Test results independently reviewed as above. Pertinent findings: WBC 8.9 hemoglobin 12.9 potassium 5.9 BUN 24 creatinine 1.41 GFR 49 troponin 0.032 AST 35 ALT 35 Independently reviewed EKG junctional rhythm rate 83 Imaging studies independently reviewed: CT abdomen pelvis no acute finding Consultations: None indicated at this time Re-evaluations: 9:43 a.m.. Repeat potassium 4.7 after 1 L normal saline. Patient was able to eat pudding here. Without vomiting or nausea. Reviewed results with patient and . He may have acid reflux or gastritis or esophagitis. They will try to contact her primary care or clyde Giovanni provider that did the EGD last May. Otherwise I will provide referral for our general surgeon for follow up for EGD. I will prescribe Protonix. They will continue MiraLax at home. I will also provide Zofran for him. They agree with treatment plan. They desire discharge home. Discussion: Appropriate for discharge home exam is reassuring. Return precautions reviewed. Laboratory studies imaging studies reassuring. Not toxic at discharge. They desire discharge home. Patient is on omeprazole but does not tolerate it, we will try Protonix. Diagnosis: Nausea Discharge Plan Departure Patient Disposition: Home Clinical Impression: Nausea Instructions: DI for Nausea -- Adult Activity Restrictions/Additional Instructions: Please keep well hydrated. Your exam and laboratory studies and imaging studies are reassuring today. It is possible you have gastritis/acid reflux. Prescriptions have been sent to your pharmacy. Please call provided general surgery office to schedule outpatient endoscopy of your stomach and esophagus. Continue fluids/bland foods for your appetite. Return if worse if any questions or concerns. Prescriptions: New pantoprazole [Protonix] 40 mg tablet,delayed release (DR/EC) 40 mg PO DAILY Qty: 30 0RF ondansetron 4 mg tablet,disintegrating 4 mg PO Q8H PRN (Reason: nausea and vomiting) Qty: 20 0RF No Action aspirin 81 MG tablet,delayed release (DR/EC) 81 mg PO HS Qty: 0 rosuvastatin [Crestor] 20 MG tablet 20 mg PO QDAY Qty: 0 naproxen sodium [Aleve] 220 MG capsule 220 mg PO QDAY Qty: 0 tamsulosin [Flomax] 0.4 MG capsule,extended release 24hr 0.4 mg PO HS Qty: 0 metoprolol tartrate 50 MG tablet 50 mg PO BID Qty: 0 oxycodone 5 mg tablet 5 mg PO DAILY Qty: 15 0RF hydrocodone-acetaminophen 5-325 mg tablet 1 tab PO Q6H PRN (Reason: pain) Qty: 20 0RF ondansetron 4 mg tablet,disintegrating 4 mg PO Q8H PRN (Reason: nausea and vomiting) Qty: 10 0RF Referrals: Jimmie Suazo MD [Physician] - Stand Alone Forms: Patient Portal/API/Survey
[2024-07-06 07:48] LABS: Add Manual Diff / Slide Review NO; Basophils Absolute Auto 0 /uL (0-100); Basophils Percent Auto 0.4 % (0-2); Eosinophils Absolute Auto 0 /uL (0-450); Eosinophils Percent Auto 0.5 % (2-4); Hematocrit 38.4 % (41-53); Hemoglobin 12.9 g/dL (13.5-17.5); Lymphocytes Absolute Auto 1400 /uL (1100-4500); Lymphocytes Percent Auto 15.4 % (25-40); Mean Corpuscular HGB Conc 33.5 % (30-36); Mean Corpuscular Hemoglobin 31.4 PG (26-34); Mean Corpuscular Volume 93.6 fL (80-100); Monocytes Absolute Auto 400 /uL (0-900); Monocytes Percent Auto 4.4 % (3-14); Neutrophils Absolute Auto 7000 /uL (1500-7000); Neutrophils Percent Auto 79.3 % (50-75); Platelet Count 272 X10^3/uL (150-400); Red Cell Distribution Width 14.3 % (11.6-14.8); White Blood Cell Count 8.9 X10^3/uL (4.5-11.0)
[2024-07-06] MEDS: SODIUM CHLORIDE 0.9% 1,000 ML 1000 ML IV (07:49)
[2024-07-06] MEDS: PANTOPRAZOLE 40 MG VIAL IV (07:49)
--- NOTE | 2024-07-06 07:52 | EKG_ITS ---
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
[2024-07-06 08:03] LABS: Alanine Aminotransferase 35 IU/L (<50); Albumin 4.5 g/dL (3.5-5.0); Albumin Globulin Ratio 1.1 (1.0-2.8); Alkaline Phosphatase 93 U/L (38-126); Aspartate Aminotransferase 35 IU/L (17-59); Bilirubin Total 0.8 mg/dL (0.2-1.3); Blood Urea Nitrogen 24 mg/dL (9-20); Calcium 9.3 mg/dL (8.4-10.2); Carbon Dioxide 21 mmol/L (22-32); Chloride 105 mmol/L (98-107); Estimated Glomerular Filt Rate 49 mL/min (>60); Globulin 4.2 g/dL (1.7-4.1); Glucose 106 mg/dL (80-110); Lipase 94 U/L (23-300); Sodium 137 mmol/L (137-145); Total Protein 8.7 g/dL (6.3-8.2)
[2024-07-06 08:06] LABS: HEMOLYSIS 51 (0-50); Potassium 5.9 mmol/L (3.4-5.1)
[2024-07-06 08:14] LABS: Troponin I 0.032 ng/mL (0.01-0.034)
[2024-07-06 08:30] LABS: Appearance Urine UA CLEAR; Bilirubin Urine UA NEGATIVE (NEGATIVE); Color Urine UA YELLOW; Glucose Urine UA NEGATIVE (Negative); Ketones Urine UA NEGATIVE (NEGATIVE); Leukocyte Esterase Urine UA 1+ (NEGATIVE); Nitrite Urine UA NEGATIVE (Negative); Occult Blood Urine UA NEGATIVE (Negative); Protein Urine UA NEGATIVE (Negative); Urobilinogen Urine UA 0.2 E.U./dL (0.2); pH Urine UA 7.5 (4.5-8.0)
[2024-07-06 08:39] LABS: Urine Volume 10mL (spun)
[2024-07-06 08:40] LABS: Bacteria Urine Moderate (10-30); Culture Indicated Urine Specimen Cultured; RBC Urine None Seen (0-5/HPF); Squamous Epithelial Cell Urine 0-1 /HPF (0-5/HPF); WBC Urine 5-10/HPF (0-5/HPF)
--- NOTE | 2024-07-06 09:14 | PC.NURSE ---
Assumed cares of pt at this time. Pt sitting up in [facility]. Appears in NAD.
[2024-07-06 09:17] LABS: BUN Creatinine Ratio 16.4 (6-22); Blood Urea Nitrogen 21 mg/dL (9-20); Calcium 8.2 mg/dL (8.4-10.2); Carbon Dioxide 23 mmol/L (22-32); Chloride 105 mmol/L (98-107); Estimated Glomerular Filt Rate 55 mL/min (>60); Glucose 95 mg/dL (80-110); HEMOLYSIS < 15 (0-50); Potassium 4.7 mmol/L (3.4-5.1); Sodium 135 mmol/L (137-145)
--- NOTE | 2024-07-06 09:22 | PC.NURSE ---
Pt reports on and off diarrhea n/v/d. States he was treated for constipation. Pt has chronic indwelling catheter with leg bag. Urine clear and without sediment. pt denies discharge or concerns about catheter. Pt reports he keeps his catheter clean. While in ER pt reports he has been passing gas but no bowel movement. states he has been taking miralax. Pt states he does not take a blood thinner.
== END 2024-07-06 10:08 | disposition home or self-care (01) ==
PROVIDERS: Emergency Provider Emergency Medicine
DX: R11.0 Nausea (principal); Z95.1 Presence of aortocoronary bypass graft; B95.7 Other staphylococcus as the cause of diseases classified elsewhere; Z87.19 Personal history of other diseases of the digestive system
CPT/HCPCS: 74176; 80048; 80053; 81001; 83690; 84484; 85025; 87077; 87086; 87186; 93005; 93010; 96361; 96374; 99284; J2470

== ENCOUNTER 2024-08-10 06:28 | Day surgery (SDC) | payer MEDICARE, SELFPAY ==
[2024-08-10] MEDS: LACTATED RINGERS 1,000 ML 42 ML IV (07:14)
[2024-08-10 07:15] VITALS: BP 137/68; PULSE 56; RESP 16; TEMP 36.3; O2SAT 97
--- NOTE | 2024-08-10 07:22 | PM.PREOP ---
Pre-operative Note COVID-19 COVID-19 status: Not tested Interval Note History & Physical reviewed/Exam performed by Physician: Yes Changes to H&P: No ASA Class (for procedural sedation): III
--- NOTE | 2024-08-10 07:54 | PM.OP.COLON ---
Operative Date/Time/Diagnoses Date of procedure: 08/10/24 Time of procedure: 08:20
[2024-08-10 07:55] VITALS: BP 123/67; PULSE 58; RESP 14; TEMP 36.2; O2SAT 95
--- NOTE | 2024-08-10 07:55 | PM.OP.ENDO ---
Operative Date/Time/Diagnoses Date of procedure: 08/10/24 Time of procedure: 07:45 Pre-op diagnosis: Nausea Post-op diagnosis: same Procedure & Clinicians Study performed: EGD Same procedure as scheduled: Yes Indications: Nausea Surgeon: Kennedy Calvin Procedure Notes SCOAP/Timeout: 743 Procedure in detail: Patient was placed on the table in the left lateral decubitus position. A bite block was placed between his incisors. A fiberoptic upper endoscope was passed into the upper mid and lower esophagus under direct endoscopic vision. Stomach was insufflated. The pylorus was cannulated. It was patent but appeared slightly stenotic. The duodenal was visualized through its 3rd portion and was normal. Gastric antrum corpus and fundus were normal. Z-line was at 35 cm. There was no indication of reflux or erosion. Scope withdrawal time: 0758 Specimen(s): none sent Complications: none Impression: Normal upper endoscopy Post-procedure Plan for aftercare: Discharge when awake alert. Continue following dietary recommendations avoiding fats and oils Follow up: as needed Disposition: PACU
[2024-08-10 08:00] VITALS: BP 128/65; PULSE 60; RESP 13; O2SAT 94
[2024-08-10 08:05] VITALS: BP 137/71; PULSE 60; RESP 15; O2SAT 96
== END 2024-08-10 08:33 | disposition home or self-care (01) ==
PROVIDERS: PCP Internal Medicine; Referring Provider Surgery; Visit Provider Surgery
PROC: 0DJ08ZZ Inspection of Upper Intestinal Tract, Via Natural or Artificial Opening Endoscopic (ICD-10-PCS; CPT 43235; principal; 2024-08-10 07:45)
DX: R11.0 Nausea (principal); K31.1 Adult hypertrophic pyloric stenosis; Z95.1 Presence of aortocoronary bypass graft
CPT/HCPCS: 43235; J2704